=== PATIENT | female | born 1950 | race Caucasian/White ===

== ENCOUNTER 2019-05-22 13:21 | Outpatient (CLI) | payer BC ==
[2019-05-22] MEDS ORDERED: AMLO10TA8 PO (13:49)
[2019-05-22] MEDS ORDERED: ATOR20TA37 PO (13:49)
[2019-05-22] MEDS ORDERED: CIDE600C PO (13:49)
[2019-05-22] MEDS ORDERED: NAPR220C2 PO (14:01)
[2019-05-22] MEDS ORDERED: UBID1CAP43 PO (14:01)
[2019-05-22] MEDS ORDERED: ACET-458 PO (14:01)
== END 2019-05-22 23:59 | disposition home or self-care (01) ==
LOC: EDBD → STAR 13:21
PROVIDERS: ATTEND Surgery
DX: Z01.818 Encounter for other preprocedural examination (principal)
CPT/HCPCS: 93005

== ENCOUNTER 2019-05-26 10:40 | Inpatient (IN) | payer BC ==
[~2019-05-26] VITALS: Ht 167.6 cm; Wt 93.5 kg
[~2019-05-26 10:40] MED LIST: ACET-458 PO; AMLO10TA8 PO; ATOR20TA37 PO; CIDE600C PO; NAPR220C2 PO; UBID1CAP43 PO
[2019-05-26] MEDS ORDERED: FENTANYL PF 250 MCG/5ML ONE (10:50)
[2019-05-26] MEDS ORDERED: LIDOCAINE GEL 2%, 5ML ONE (10:51)
[2019-05-26] MEDS ORDERED: HYDROmorphone 2 MG/ML, 1ML IVPush PRN (11:00)
[2019-05-26] MEDS ORDERED: PROMETHAZINE 25 MG/ML, 1ML IV PRN (11:00)
[2019-05-26] MEDS ORDERED: MEPERIDINE/PF 25MG/ML,1ML IVPush PRN (11:00)
[2019-05-26] MEDS ORDERED: LABETALOL 5MG/ML, 20ML IV PRN (11:00)
[2019-05-26] MEDS ORDERED: hydrALAzine 20 MG/ML, 1ML IV PRN (11:00)
[2019-05-26] MEDS ORDERED: HALOPERIDOL 5 MG/ML IV PRN (11:00)
[2019-05-26] MEDS ORDERED: EPINEPHRINE 1 MG/ML, 1ML ONE (11:19)
[2019-05-26] MEDS ORDERED: BUPIVACAINE/PF 0.5% ONE (11:19)
[2019-05-26] MEDS ORDERED: LACTATED RINGERS 1,000 ML IV SCH (11:27)
[2019-05-26] MEDS ORDERED: ACETAMINOPHEN 500 MG TABLET PO ONE (11:30)
[2019-05-26] MEDS ORDERED: LIDOCAINE-MPF 1%, 2ML INFIL ONE (11:30)
[2019-05-26] MEDS ORDERED: GABAPENTIN 300 MG CAPSULE PO ONE (11:30)
[2019-05-26] MEDS ORDERED: MIDAZOLAM 1 MG/ML, 2ML ONE (11:36)
[2019-05-26] MEDS ORDERED: LIDOCAINE-MPF 2% ,5ML ONE (11:42)
[2019-05-26] MEDS ORDERED: HEPARIN 1,000 UNITS/ML, 10ML ONE (11:42)
[2019-05-26] MEDS ORDERED: CALCIUM CHLORIDE 10%, 10ML SYR ONE (11:43)
[2019-05-26] MEDS ORDERED: GLYCOPYRROLATE 0.2MG/1ML, 5ML ONE (11:46)
[2019-05-26] MEDS ORDERED: ROCURONIUM 10MG/ML,5ML ONE (11:46)
[2019-05-26] MEDS ORDERED: NEOSTIGMINE 1 MG/ML, 10ML ONE (11:46)
[2019-05-26] MEDS ORDERED: SUCCINYLCHOLINE 20 MG/ML, 10ML ONE (11:46)
[2019-05-26] MEDS ORDERED: ROPIvacaine/PF 0.2%, 20 ML ONE ×2 (15:35)
[2019-05-26] MEDS ORDERED: DEXAMETHASONE 4 MG/ML, 1ML ONE (15:42)
[2019-05-26] MEDS ORDERED: ONDANSETRON 2MG/ML, 2ML ONE (15:42)
[2019-05-26] MEDS ORDERED: CEFAZOLIN 1,000 MG ONE (15:42)
[2019-05-26] MEDS ORDERED: PROPOFOL 10 MG/ML, 20ML ONE (15:42)
[2019-05-26] MEDS ORDERED: OXYcodone 5 MG/5 ML ORAL.SOL UDC ONE (16:08)
[2019-05-26] MEDS ORDERED: FENTANYL PF 100 MCG/2ML ONE (16:08)
[2019-05-26] MEDS: OXYcodone 5 MG/5 ML ORAL.SOL UDC PO PRN ×2 (16:10→16:25)
[2019-05-26] MEDS: FENTANYL PF 100 MCG/2ML IV PRN ×2 (16:20→16:30)
[2019-05-26] MEDS ORDERED: MEPERIDINE/PF 25MG/ML,1ML ONE (16:47)
[2019-05-26 17:40] VITALS: BP 120/78
[2019-05-26] MEDS ORDERED: ACETAMINOPHEN 650 MG SUPP PR PRN (18:00)
[2019-05-26] MEDS ORDERED: DIPHENHYDRAMINE 25 MG CAPSULE PO PRN (18:00)
[2019-05-26] MEDS ORDERED: DIPHENHYDRAMINE 50 MG/ML, 1ML IV PRN (18:00)
[2019-05-26] MEDS ORDERED: LORazepam 2 MG/ML, 1ML IV PRN (18:30)
[2019-05-26] MEDS ORDERED: LORazepam 1MG TABLET PO PRN (18:30)
[2019-05-26] MEDS ORDERED: D5%-0.45% NACL 1,000 ML IV SCH (18:30)
[2019-05-26] MEDS: D5%-0.45% NACL 1,000 ML IV SCH (18:46)
[2019-05-26] MEDS: CEFAZOLIN PMX 2GM/50ML 50 ML IVPB SCH (19:58)
[2019-05-26 20:18] VITALS: BP 112/73
[2019-05-26] MEDS: OXYcodone/APAP 5/325MG TABLET PO PRN ×2 (20:27→21:02)
[2019-05-26 23:54] VITALS: BP 126/74
[2019-05-27] MEDS: morphine SULFATE 10 MG/ML, 1ML IV PRN ×5 (00:14→11:27)
[2019-05-27] MEDS: OXYcodone/APAP 5/325MG TABLET PO PRN ×5 (01:43→21:17)
[2019-05-27 03:58] VITALS: BP 129/70
[2019-05-27] MEDS: D5%-0.45% NACL 1,000 ML IV SCH ×2 (04:04→14:30)
[2019-05-27] MEDS: CEFAZOLIN PMX 2GM/50ML 50 ML IVPB SCH (04:11)
[2019-05-27 07:11] VITALS: BP 126/71
[2019-05-27 12:25] VITALS: BP 119/73
[2019-05-27] MEDS: ALBUTEROL SULFATE 2.5 MG/3 ML NPPB SCH ×2 (15:31→19:43)
[2019-05-27 20:00] VITALS: BP 136/85
[2019-05-28] MEDS: D5%-0.45% NACL 1,000 ML IV SCH ×3 (00:30→20:30)
[2019-05-28 02:00] VITALS: BP 143/70
[2019-05-28] MEDS: OXYcodone/APAP 5/325MG TABLET PO PRN ×2 (05:27→11:23)
[2019-05-28] MEDS: ALBUTEROL SULFATE 2.5 MG/3 ML NPPB SCH (05:56)
[2019-05-28 06:53] VITALS: BP 155/78
[2019-05-28 12:59] VITALS: BP 157/78
[2019-05-28] MEDS: ONDANSETRON 2MG/ML, 2ML IV PRN ×3 (15:49→22:20)
[2019-05-28] MEDS: ACETAMINOPHEN 325 MG TABLET PO PRN (15:49)
[2019-05-28 18:44] VITALS: BP 148/80
[2019-05-28] MEDS: ATORVASTATIN 20 MG TABLET PO SCH (20:30)
[2019-05-28] MEDS ORDERED: ALBUTEROL SULFATE 2.5 MG/3 ML ONE (22:55)
[2019-05-29 02:56] VITALS: BP 133/79
[2019-05-29] MEDS: D5%-0.45% NACL 1,000 ML IV SCH ×2 (06:29→16:30)
[2019-05-29 06:36] VITALS: BP 104/68
[2019-05-29] MEDS ORDERED: AMLODIPINE 10 MG TAB PO SCH (09:00)
[2019-05-29 09:42] VITALS: BP 124/71
[2019-05-29 14:04] VITALS: BP 101/70
[2019-05-29] MEDS ORDERED: ALBUTEROL/IPRATROPIUM 2.5MG/0.5MG, 3 ML NPPB PRN (14:30)
[2019-05-29] MEDS: ONDANSETRON 2MG/ML, 2ML IV PRN (15:30)
[2019-05-29 18:19] LABS: ANION GAP 3 mmol/L (5-15); CHLORIDE 104 mmol/L (98-107); CREATININE 0.63 mg/dL (0.55-1.02)
[2019-05-29] MEDS: ALBUTEROL SULFATE 2.5 MG/3 ML NPPB SCH (20:22)
[2019-05-29 20:38] LABS: BASOPHILS # (AUTO) 0.01 x10^3/uL (0-0.1); BASOPHILS % (AUTO) 0 % (0-1); EOSINOPHILS # (AUTO) 0.13 x10^3/uL (0-0.4); EOSINOPHILS % (AUTO) 2 % (1-7); LYMPHOCYTES # (AUTO) 0.75 x10^3/uL (1-3.4); LYMPHOCYTES % (AUTO) 9 % (22-44); MD NO; MEAN CORPUSCULAR HEMOGLOBIN 31.2 pg (27.0-34.8); MEAN CORPUSCULAR HGB CONC 33.8 g/dL (32.4-35.8); MEAN CORPUSCULAR VOLUME 92.4 fL (80-100); MEAN PLATELET VOLUME 7.4 fL (7.4-10.4); MONOCYTES # (AUTO) 0.54 x10^3/uL (0.2-0.8); MONOCYTES % (AUTO) 6 % (2-9); NEUTROPHILS # (AUTO) 7.14 x10^3/uL (1.8-6.8); NEUTROPHILS % (AUTO) 83 % (42-75); PLATELET COUNT 213 x10^3/uL (130-400); RED CELL DISTRIBUTION WIDTH 13.7 % (9.6-15.2)
[2019-05-29 20:51] VITALS: BP 135/78
[2019-05-29 20:56] LABS: TROPONIN I < 0.015 ng/mL (0.000-0.045)
[2019-05-29 21:00] LABS: INTERNATIONAL NORMALIZED RATIO 0.89 (0.93-1.1); PROTHROMBIN TIME 9.4 Seconds (9.6-11.5)
[2019-05-29] MEDS ORDERED: ATORVASTATIN 20 MG TABLET PO SCH (21:00)
[2019-05-29] MEDS: ATORVASTATIN 20 MG TABLET PO SCH (22:09)
[2019-05-29 22:11] LABS: FREE T4 (FREE THYROXINE) 1.01 ng/dL (0.76-1.46)
[2019-05-29] MEDS: ACETAMINOPHEN 325 MG TABLET PO PRN (22:42)
[2019-05-29] MEDS ORDERED: HEPARIN 25,000 UNITS/250ML PMX 250 ML IV PRN (23:00)
[2019-05-29] MEDS ORDERED: HEPARIN 5,000 UNITS/ML, 1ML IV ONE (23:00)
[2019-05-29] MEDS ORDERED: HEPARIN 5,000 UNITS/ML, 1ML IV PRN (23:00)
[2019-05-29] MEDS ORDERED: AMIODARONE 150 MG in DEXTROSE 5% 100 ML IV ONE (23:00)
[2019-05-29] MEDS ORDERED: FILTER 0.22 MICRON IV PRN (23:00)
[2019-05-29] MEDS: AMIODARONE 450 MG in DEXTROSE 5% 241 ML IV PRN (23:28)
[2019-05-30 01:02] VITALS: BP 119/75
[2019-05-30 06:39] VITALS: BP 139/80
[2019-05-30] MEDS: AMIODARONE 450 MG in DEXTROSE 5% 241 ML IV PRN (06:42)
[2019-05-30 08:51] VITALS: BP 121/76
[2019-05-30] MEDS: METOPROLOL TARTRATE 25 MG TAB PO SCH ×2 (08:57→21:33)
[2019-05-30] MEDS ORDERED: TEMPLATE NON-FORMULARY MED. (Ubidecarenone/Vit E Acetate (Co Q-10 100 Mg Softgel) 1 CAP) PO SCH (09:00)
[2019-05-30] MEDS ORDERED: METOPROLOL SUCCINATE 25 MG TAB.ER.24H PO SCH (09:00)
[2019-05-30] MEDS: ALBUTEROL SULFATE 2.5 MG/3 ML NPPB SCH ×2 (09:56→21:15)
[2019-05-30 14:40] VITALS: BP 114/69
[2019-05-30] MEDS: HEPARIN 5,000 UNITS/ML, 1ML SQ SCH (17:25)
[2019-05-30 20:08] VITALS: BP 148/83
[2019-05-30] MEDS: ATORVASTATIN 20 MG TABLET PO SCH (21:32)
[2019-05-30] MEDS: ACETAMINOPHEN 325 MG TABLET PO PRN (22:49)
[2019-05-31 01:19] VITALS: BP 151/81
[2019-05-31] MEDS: HEPARIN 5,000 UNITS/ML, 1ML SQ SCH ×3 (01:19→17:38)
[2019-05-31 05:24] LABS: ALANINE AMINOTRANSFERASE 35 U/L (12-78); ALBUMIN 2.7 g/dL (3.4-5.0); ANION GAP 4 mmol/L (5-15); CALCIUM 9.3 mg/dL (8.5-10.1); CHLORIDE 105 mmol/L (98-107); CREATININE 0.65 mg/dL (0.55-1.02)
[2019-05-31 05:25] LABS: BASOPHILS # (AUTO) 0.05 x10^3/uL (0-0.1); BASOPHILS % (AUTO) 1 % (0-1); EOSINOPHILS # (AUTO) 0.34 x10^3/uL (0-0.4); EOSINOPHILS % (AUTO) 5 % (1-7); LYMPHOCYTES # (AUTO) 1.48 x10^3/uL (1-3.4); LYMPHOCYTES % (AUTO) 23 % (22-44); MD NO; MEAN CORPUSCULAR HEMOGLOBIN 30.9 pg (27.0-34.8); MEAN CORPUSCULAR HGB CONC 33.6 g/dL (32.4-35.8); MEAN CORPUSCULAR VOLUME 92.1 fL (80-100); MEAN PLATELET VOLUME 7.7 fL (7.4-10.4); MONOCYTES # (AUTO) 0.54 x10^3/uL (0.2-0.8); MONOCYTES % (AUTO) 8 % (2-9); NEUTROPHILS # (AUTO) 4.12 x10^3/uL (1.8-6.8); NEUTROPHILS % (AUTO) 63 % (42-75); PLATELET COUNT 232 x10^3/uL (130-400); RED BLOOD COUNT 3.98 x10^6/uL (3.82-5.3); RED CELL DISTRIBUTION WIDTH 13.3 % (9.6-15.2)
[2019-05-31 05:26] LABS: ALKALINE PHOSPHATASE 77 U/L (45-117); BILIRUBIN,TOTAL 0.5 mg/dL (0.2-1.0); TOTAL PROTEIN 6.2 g/dL (6.4-8.2)
[2019-05-31 06:45] VITALS: BP 139/78
[2019-05-31] MEDS: ALBUTEROL SULFATE 2.5 MG/3 ML NPPB SCH (09:55)
[2019-05-31] MEDS: METOPROLOL TARTRATE 25 MG TAB PO SCH (10:03)
[2019-05-31 15:48] VITALS: BP 120/74
== END 2019-05-31 19:13 | disposition home or self-care (01) | DRG 570 ==
LOC: OUT 10:40 → 4NE 17:31 → OUT 21:57 → 5SO 05-29 20:38
PROVIDERS: ADMIT Plastic Surgery; ATTEND Internal Medicine
PROC: 0WU Anatomical Regions, General, Supplement (ICD-10-PCS; 2019-05-26)
PROC: 0JB80ZZ Excision of Abdomen Subcutaneous Tissue and Fascia, Open Approach (ICD-10-PCS; 2019-05-26 12:30)
PROC: B246ZZ4 Ultrasonography of Right and Left Heart, Transesophageal (ICD-10-PCS; principal; 2019-05-30 12:30)
DX: I89.0 Lymphedema, not elsewhere classified (principal); J96.01 Acute respiratory failure with hypoxia; Z94.84 Stem cells transplant status; I50.22 Chronic systolic (congestive) heart failure; I42.9 Cardiomyopathy, unspecified; J98.11 Atelectasis; M54.5 Low back pain; G89.29 Other chronic pain; I34.0 Nonrheumatic mitral (valve) insufficiency; E66.9 Obesity, unspecified; I11.0 Hypertensive heart disease with heart failure; E78.5 Hyperlipidemia, unspecified; R00.0 Tachycardia, unspecified; I48.0 Paroxysmal atrial fibrillation; Z82.0 Family history of epilepsy and other diseases of the nervous system; Z82.49 Family history of ischemic heart disease and other diseases of the circulatory system; Z85.828 Personal history of other malignant neoplasm of skin; Z87.891 Personal history of nicotine dependence; Z90.710 Acquired absence of both cervix and uterus; Z85.3 Personal history of malignant neoplasm of breast; Z92.21 Personal history of antineoplastic chemotherapy
CPT/HCPCS: 36415; J3490; J7613; 71045; 71275; 80048; 80053; 83735; 83880; 84439; 84443; 84484; 85025; 85520; 85610; 85730; 93005; 93308; 93312; 93321; 93325; 94640; C1729; G0378; J0171; J0690; J1100; J1644; J2250; J2405; J2704; J2710; J2795; J3010; J7060; J0282; J0330; J2175; J2270; J7120

== ENCOUNTER 2019-06-23 10:21 | Day surgery (SDC) | payer BC ==
[~2019-06-23] VITALS: Ht 165.1 cm; Wt 78.6 kg
[2019-06-23 11:08] VITALS: BP 111/73
[2019-06-23] MEDS ORDERED: METO50TA82 PO (11:28)
[2019-06-23] MEDS ORDERED: MIDAZOLAM 1 MG/ML, 5ML ONE (11:47)
[2019-06-23] MEDS ORDERED: FENTANYL PF 100 MCG/2ML ONE (11:47)
[2019-06-23] MEDS ORDERED: VERAPAMIL 2.5 MG/ML, 2ML ONE (11:48)
[2019-06-23] MEDS ORDERED: LIDOCAINE-MPF 1%, 5ML ONE (11:48)
[2019-06-23] MEDS ORDERED: BIVALIRUDIN 250 MG ONE (11:48)
[2019-06-23] MEDS ORDERED: HEPARIN 1,000 UNITS/ML, 10ML ONE (11:48)
== END 2019-06-23 14:52 | disposition home or self-care (01) ==
LOC: CACL 10:21
PROVIDERS: ATTEND Internal Medicine Cardiovascular Disease
DX: D15.1 Benign neoplasm of heart (principal); I25.10 Atherosclerotic heart disease of native coronary artery without angina pectoris; I25.83 Coronary atherosclerosis due to lipid rich plaque; I10 Essential (primary) hypertension; E78.5 Hyperlipidemia, unspecified; Z79.899 Other long term (current) drug therapy; Z85.3 Personal history of malignant neoplasm of breast; Z92.21 Personal history of antineoplastic chemotherapy; Z92.3 Personal history of irradiation; Z94.84 Stem cells transplant status
CPT/HCPCS: 93458; 99156; C1769; C1894; J1644; J2250; J3010; Q9967; J0583

== ENCOUNTER 2019-09-12 14:47 | Outpatient (CLI) | payer BC ==
[~2019-09-12 14:47] MED LIST changes: +METO50TA82 PO
== END 2019-09-12 23:59 | disposition home or self-care (01) ==
LOC: CFH 14:47
PROVIDERS: ATTEND Internal Medicine Cardiovascular Disease
DX: I08.1 Rheumatic disorders of both mitral and tricuspid valves (principal)
CPT/HCPCS: 93306

== ENCOUNTER 2019-10-01 13:56 | Outpatient (CLI) | payer BC ==
[2019-10-01] MEDS ORDERED: OMNIPAQUE 350 MG/ML, 100ML BOTTLE ONE (14:30)
== END 2019-10-01 23:59 | disposition home or self-care (01) ==
LOC: CFH 13:56
PROVIDERS: ATTEND Thoracic Surgery (Cardiothoracic Vascular Surgery)
DX: D15.1 Benign neoplasm of heart (principal)
CPT/HCPCS: 71275; 82565; Q9967

== ENCOUNTER 2019-10-06 08:00 | Outpatient (CLI) | payer BC ==
[2019-10-06] MEDS ORDERED: ACET-458 PO (13:22)
[2019-10-06] MEDS ORDERED: NAPR220C2 PO (13:22)
== END 2019-10-06 23:59 | disposition home or self-care (01) ==
LOC: CVU 08:00
PROVIDERS: ATTEND Thoracic Surgery (Cardiothoracic Vascular Surgery)
DX: I65.21 Occlusion and stenosis of right carotid artery (principal); I77.1 Stricture of artery; D15.1 Benign neoplasm of heart
CPT/HCPCS: 93880

== ENCOUNTER 2019-10-07 04:52 | Inpatient (IN) | payer BC, MEDICARE ==
[2019-10-06 13:48] LABS: BASOPHILS # (AUTO) 0.02 x10^3/uL (0-0.1); BASOPHILS % (AUTO) 0 % (0-1); EOSINOPHILS # (AUTO) 0.15 x10^3/uL (0-0.4); EOSINOPHILS % (AUTO) 2 % (1-7); LYMPHOCYTES # (AUTO) 1.62 x10^3/uL (1-3.4); LYMPHOCYTES % (AUTO) 24 % (22-44); MD NO; MEAN CORPUSCULAR HEMOGLOBIN 30.2 pg (27.0-34.8); MEAN CORPUSCULAR HGB CONC 33.3 g/dL (32.4-35.8); MEAN CORPUSCULAR VOLUME 90.6 fL (80-100); MONOCYTES # (AUTO) 0.44 x10^3/uL (0.2-0.8); MONOCYTES % (AUTO) 7 % (2-9); NEUTROPHILS # (AUTO) 4.51 x10^3/uL (1.8-6.8); NEUTROPHILS % (AUTO) 67 % (42-75); PLATELET COUNT 273 x10^3/uL (130-400); RED CELL DISTRIBUTION WIDTH 13.5 % (9.6-15.2)
[2019-10-06 13:57] LABS: MICROSCOPIC NOT IND
[2019-10-06 13:58] LABS: INTERNATIONAL NORMALIZED RATIO 0.92 (0.93-1.1); PROTHROMBIN TIME 9.7 Seconds (9.6-11.5)
[2019-10-06 14:00] LABS: ALANINE AMINOTRANSFERASE 27 U/L (12-78); ALBUMIN 4.1 g/dL (3.4-5.0); ANION GAP 3 mmol/L (5-15); CALCIUM 9.1 mg/dL (8.5-10.1); CHLORIDE 111 mmol/L (98-107); CREATININE 0.76 mg/dL (0.55-1.02)
[2019-10-06 14:03] LABS: ALKALINE PHOSPHATASE 83 U/L (45-117); BILIRUBIN,TOTAL 0.6 mg/dL (0.2-1.0)
[~2019-10-07] VITALS: Ht 165.1 cm; Wt 89.0 kg
[2019-10-07 05:12] VITALS: BP 144/90
[2019-10-07 05:13] VITALS: BP 166/98
[2019-10-07] MEDS ORDERED: CHLORHEXIDINE 15 ML UDC MM SCH (05:30)
[2019-10-07] MEDS ORDERED: INSULIN LISPRO 100 UNITS/ML, PEN SQ-INSULIN SCH (05:30)
[2019-10-07] MEDS ORDERED: DO NOT GIVE MC SCH (05:30)
[2019-10-07] MEDS ORDERED: AMINOCAPROIC ACID 250 MG/ML, 20ML ONE ×2 (06:43)
[2019-10-07] MEDS ORDERED: ROCURONIUM 10MG/ML,5ML ONE ×2 (06:43)
[2019-10-07] MEDS ORDERED: PROPOFOL 10 MG/ML, 20ML ONE (06:43)
[2019-10-07] MEDS ORDERED: MIDAZOLAM 10MG/2 ML ONE (06:43)
[2019-10-07] MEDS ORDERED: FENTANYL PF 250 MCG/5ML ONE ×4 (06:43)
[2019-10-07] MEDS ORDERED: POTASSIUM CHLORIDE 80 MEQ, SODIUM BICARBONATE 8.4% 10 MEQ, MAGNESIUM SULFATE 0.5 GM, LI... IV PRN (07:30)
[2019-10-07] MEDS ORDERED: MANNITOL PMX 20% 500 ML IVPB PRN (07:30)
[2019-10-07] MEDS ORDERED: ALBUMIN HUMAN 5% 500 ML IV PRN (07:30)
[2019-10-07] MEDS ORDERED: VANCOMYCIN 1,200 MG in SODIUM CHLORIDE 0.9% 250 ML IV PRN (07:30)
[2019-10-07] MEDS ORDERED: DEXMEDETOMIDINE 200 MCG in SODIUM CHLORIDE 0.9% 48 ML IV PRN ×2 (07:30→07:49)
[2019-10-07] MEDS ORDERED: EPINEPHRINE 5 MG in SODIUM CHLORIDE 0.9% 245 ML IV PRN ×2 (07:30→08:00)
[2019-10-07] MEDS ORDERED: REGULAR INSULIN 100 UNITS in SODIUM CHLORIDE 0.9% 99 ML IV PRN ×2 (07:30→07:49)
[2019-10-07] MEDS ORDERED: PHENYLEPHRINE 50 MG in SODIUM CHLORIDE 0.9% 245 ML IV PRN ×2 (07:30→07:49)
[2019-10-07] MEDS ORDERED: CEFUROXIME 1.5 GM in SODIUM CHLORIDE 0.9% 50 ML IVPB PRN (07:30)
[2019-10-07] MEDS ORDERED: VASOPRESSIN 20 UNIT in SODIUM CHLORIDE 0.9% 99 ML IV PRN (07:49)
[2019-10-07] MEDS ORDERED: NITROGLYCERIN/D5W PMX 250 ML IV PRN (07:49)
[2019-10-07] MEDS ORDERED: SODIUM CHLORIDE 0.9% 1,000 ML IV PRN (07:49)
[2019-10-07] MEDS ORDERED: DOBUTAMINE 250 MG in SODIUM CHLORIDE 0.9% 230 ML IV PRN (07:49)
[2019-10-07] MEDS ORDERED: MIDAZOLAM 1 MG/ML, 5ML IVPush PRN (08:00)
[2019-10-07] MEDS ORDERED: ACETAMINOPHEN 325 MG TABLET PO PRN (08:00)
[2019-10-07] MEDS ORDERED: INSULIN REGULAR 100 UNITS/ML, 3ML VIAL IVPush PRN (08:00)
[2019-10-07] MEDS ORDERED: GLUCAGON 1 MG IM PRN (08:00)
[2019-10-07] MEDS ORDERED: ACETAMINOPHEN 650 MG SUPP PR PRN (08:00)
[2019-10-07] MEDS ORDERED: BISACODYL 10 MG SUPP PR PRN (08:00)
[2019-10-07] MEDS ORDERED: BISACODYL 5 MG EC TABLET PO PRN (08:00)
[2019-10-07] MEDS ORDERED: PROCHLORPERAZINE 5 MG/ML, 2ML IVPush PRN (08:00)
[2019-10-07] MEDS ORDERED: ONDANSETRON 2MG/ML, 2ML IVPush PRN (08:00)
[2019-10-07] MEDS ORDERED: SODIUM BICARB 8.4%, 50ML SYRINGE IV PRN (08:00)
[2019-10-07] MEDS ORDERED: DEXTROSE 4 GM TAB.CHEW PO PRN (08:00)
[2019-10-07] MEDS ORDERED: HYDROmorphone 1 MG/ML, 1ML INJ IVPush PRN (08:00)
[2019-10-07] MEDS ORDERED: DEXTROSE 50%, 50ML SYRINGE IVPush PRN (08:00)
[2019-10-07] MEDS ORDERED: PROTAMINE SULFATE 10 MG/ML, 25ML ONE ×2 (08:53)
[2019-10-07] MEDS: MUPIROCIN OINT 2%, 22GM NAS SCH ×2 (09:00→20:13)
[2019-10-07] MEDS: SODIUM CHLORIDE FLUSH 10ML SYR IVF SCH ×2 (09:00→20:14)
[2019-10-07] MEDS ORDERED: MUPIROCIN OINT 2%, 22GM TP SCH (09:00)
[2019-10-07] MEDS: DOCUSATE 100 MG CAPSULE PO SCH ×2 (09:00→20:14)
[2019-10-07] MEDS ORDERED: SODIUM CHLORIDE FLUSH 10ML SYR IVF SCH (09:00)
[2019-10-07] MEDS ORDERED: CALCIUM CHLORIDE 10%, 10ML SYR ONE ×2 (10:37)
[2019-10-07] MEDS: INSULIN LISPRO 100 UNITS/ML, PEN SQ-INSULIN SCH ×3 (11:00→20:10)
[2019-10-07] MEDS: KSCALE TO 4.5 IV SCH ×3 (11:00→23:00)
[2019-10-07 11:16] LABS: GLUCOSE BY BLOOD GAS ANALYZER 185 mg/dL (70-110); HEMOGLOBIN BY BLOOD GAS ANALYZ 11.6 g/dL (14.0-18.0); POTASSIUM BY BLOOD GAS ANALYZR 3.2 mmol/L (3.6-5.5)
[2019-10-07 11:28] LABS: INTERNATIONAL NORMALIZED RATIO 1.08 (0.93-1.1); PROTHROMBIN TIME 11.5 Seconds (9.6-11.5)
[2019-10-07] MEDS: FENTANYL PF 100 MCG/2ML IVPush PRN ×4 (11:31→20:01)
[2019-10-07] MEDS: MAGNESIUM SULFATE 1 GM in SODIUM CHLORIDE 0.9% 100 ML IVPB SCH (11:53)
[2019-10-07] MEDS ORDERED: SODIUM BICARBONATE 1 MEQ/ML, 50ML VIAL ONE (12:25)
[2019-10-07] MEDS ORDERED: SODIUM BICARB 8.4%, 50ML SYRINGE ONE (12:25)
[2019-10-07] MEDS ORDERED: ALBUMIN HUMAN 25% 50 ML ONE (12:26)
[2019-10-07] MEDS ORDERED: LIDOCAINE 2%, 20ML ONE (12:26)
[2019-10-07] MEDS ORDERED: methylPREDNISolone SOD SUCC 125 MG/2 ML ONE (12:26)
[2019-10-07] MEDS ORDERED: HEPARIN 1,000 UNITS/ML, 30ML ONE (12:26)
[2019-10-07] MEDS ORDERED: POTASSIUM CHLORIDE 30 MEQ in SODIUM CHLORIDE 0.9% 100 ML IV ONE (13:00)
[2019-10-07] MEDS: HYDROcodone/APAP 10/325 MG TABLET PO PRN ×3 (14:40→23:46)
[2019-10-07] MEDS: OXYcodone IR 5MG TABLET PO PRN ×2 (15:46→16:50)
[2019-10-07] MEDS: CEFUROXIME 1.5 GM in SODIUM CHLORIDE 0.9% 50 ML IVPB SCH (18:42)
[2019-10-07] MEDS: VANCOMYCIN 1,200 MG in SODIUM CHLORIDE 0.9% 250 ML IVPB SCH (19:32)
[2019-10-08] MEDS: LACTATED RINGERS 1,000 ML IV PRN ×2 (01:00→02:00)
[2019-10-08 04:00] VITALS: BP 106/60
[2019-10-08 04:26] LABS: BASOPHILS # (AUTO) 0.01 x10^3/uL (0-0.1); BASOPHILS % (AUTO) 0 % (0-1); EOSINOPHILS # (AUTO) 0.05 x10^3/uL (0-0.4); EOSINOPHILS % (AUTO) 0 % (1-7); LYMPHOCYTES # (AUTO) 0.61 x10^3/uL (1-3.4); LYMPHOCYTES % (AUTO) 5 % (22-44); MD NO; MEAN CORPUSCULAR HEMOGLOBIN 30.9 pg (27.0-34.8); MEAN CORPUSCULAR HGB CONC 33.7 g/dL (32.4-35.8); MEAN CORPUSCULAR VOLUME 91.6 fL (80-100); MEAN PLATELET VOLUME 7.5 fL (7.4-10.4); MONOCYTES # (AUTO) 1.03 x10^3/uL (0.2-0.8); MONOCYTES % (AUTO) 8 % (2-9); NEUTROPHILS # (AUTO) 10.59 x10^3/uL (1.8-6.8); NEUTROPHILS % (AUTO) 86 % (42-75); PLATELET COUNT 146 x10^3/uL (130-400); RED BLOOD COUNT 3.24 x10^6/uL (3.82-5.3); RED CELL DISTRIBUTION WIDTH 13.8 % (9.6-15.2)
[2019-10-08 04:36] LABS: ALBUMIN 3.1 g/dL (3.4-5.0); ANION GAP 7 mmol/L (5-15); CALCIUM 8.5 mg/dL (8.5-10.1); CHLORIDE 116 mmol/L (98-107)
[2019-10-08] MEDS: KSCALE TO 4.5 IV SCH (05:00)
[2019-10-08 05:05] LABS: INTERNATIONAL NORMALIZED RATIO 0.94 (0.93-1.1)
[2019-10-08] MEDS: HYDROcodone/APAP 5/325 TABLET PO PRN (05:09)
[2019-10-08] MEDS: INSULIN LISPRO 100 UNITS/ML, PEN SQ-INSULIN SCH ×6 (05:22→20:00)
[2019-10-08] MEDS: CEFUROXIME 1.5 GM in SODIUM CHLORIDE 0.9% 50 ML IVPB SCH (06:39)
[2019-10-08] MEDS: VANCOMYCIN 1,200 MG in SODIUM CHLORIDE 0.9% 250 ML IVPB SCH (08:21)
[2019-10-08] MEDS: MAGNESIUM SULFATE 1 GM in SODIUM CHLORIDE 0.9% 100 ML IVPB SCH (08:21)
[2019-10-08] MEDS ORDERED: FUROSEMIDE 20 MG/2 ML IV ONE (09:00)
[2019-10-08] MEDS: ASPIRIN 81 MG TABLET EC PO SCH (09:09)
[2019-10-08] MEDS: DOCUSATE 100 MG CAPSULE PO SCH ×2 (09:09→21:02)
[2019-10-08] MEDS: CALCIUM CARBONATE 500 MG TAB.CHEW PO PRN ×3 (09:09→17:12)
[2019-10-08] MEDS: KETOROLAC 30 MG/1 ML IVPush SCH ×3 (09:48→21:09)
[2019-10-08] MEDS: SODIUM CHLORIDE FLUSH 10ML SYR IVF SCH ×2 (09:49→21:02)
[2019-10-08] MEDS: MUPIROCIN OINT 2%, 22GM NAS SCH ×2 (09:49→21:02)
[2019-10-08] MEDS: CHLORHEXIDINE 15 ML UDC MM SCH ×2 (09:49→21:02)
[2019-10-08 17:30] VITALS: BP 117/70
[2019-10-08 20:54] VITALS: BP 126/72
[2019-10-09] MEDS: CALCIUM CARBONATE 500 MG TAB.CHEW PO PRN ×3 (00:03→21:58)
[2019-10-09] MEDS: KETOROLAC 30 MG/1 ML IVPush SCH ×4 (03:46→21:19)
[2019-10-09 03:47] VITALS: BP 113/68
[2019-10-09 04:21] LABS: BASOPHILS % (AUTO) 0 % (0-1); EOSINOPHILS # (AUTO) 0.04 x10^3/uL (0-0.4); EOSINOPHILS % (AUTO) 0 % (1-7); LYMPHOCYTES # (AUTO) 0.94 x10^3/uL (1-3.4); LYMPHOCYTES % (AUTO) 9 % (22-44); MD NO; MEAN CORPUSCULAR HEMOGLOBIN 30.6 pg (27.0-34.8); MEAN CORPUSCULAR HGB CONC 33.5 g/dL (32.4-35.8); MEAN CORPUSCULAR VOLUME 91.1 fL (80-100); MEAN PLATELET VOLUME 7.6 fL (7.4-10.4); MONOCYTES # (AUTO) 0.84 x10^3/uL (0.2-0.8); MONOCYTES % (AUTO) 8 % (2-9); NEUTROPHILS # (AUTO) 8.58 x10^3/uL (1.8-6.8); NEUTROPHILS % (AUTO) 82 % (42-75); PLATELET COUNT 138 x10^3/uL (130-400); RED BLOOD COUNT 3.15 x10^6/uL (3.82-5.3); RED CELL DISTRIBUTION WIDTH 13.9 % (9.6-15.2)
[2019-10-09 04:26] LABS: INTERNATIONAL NORMALIZED RATIO 0.92 (0.93-1.1); PROTHROMBIN TIME 9.7 Seconds (9.6-11.5)
[2019-10-09 04:28] LABS: ANION GAP 3 mmol/L (5-15); CALCIUM 8.9 mg/dL (8.5-10.1); CHLORIDE 110 mmol/L (98-107); CREATININE 0.74 mg/dL (0.55-1.02)
[2019-10-09 07:35] VITALS: BP 116/68
[2019-10-09] MEDS: INSULIN LISPRO 100 UNITS/ML, PEN SQ-INSULIN SCH ×4 (08:12→21:29)
[2019-10-09] MEDS: SODIUM CHLORIDE FLUSH 10ML SYR IVF SCH ×2 (08:57→21:00)
[2019-10-09] MEDS: ASPIRIN 81 MG TABLET EC PO SCH (08:57)
[2019-10-09] MEDS: CHLORHEXIDINE 15 ML UDC MM SCH ×2 (08:57→21:19)
[2019-10-09] MEDS: MUPIROCIN OINT 2%, 22GM NAS SCH ×2 (08:57→21:18)
[2019-10-09] MEDS: DOCUSATE 100 MG CAPSULE PO SCH ×2 (08:57→21:19)
[2019-10-09] MEDS: MAGNESIUM SULFATE 1 GM in SODIUM CHLORIDE 0.9% 100 ML IVPB SCH (08:57)
[2019-10-09] MEDS: FUROSEMIDE 40 MG/4 ML IV SCH ×2 (11:38→16:27)
[2019-10-09] MEDS: POTASSIUM CHLORIDE 20 MEQ TAB.ER.PRT PO SCH ×2 (11:39→16:27)
[2019-10-09 13:55] VITALS: BP 138/74
[2019-10-09] MEDS: HYDROcodone/APAP 5/325 TABLET PO PRN (15:36)
[2019-10-09] MEDS ORDERED: POTASSIUM CHLORIDE 20 MEQ TAB.ER.PRT PO SCH (17:00)
[2019-10-09] MEDS ORDERED: FUROSEMIDE 40 MG/4 ML IV SCH (17:00)
[2019-10-09 19:09] VITALS: BP 120/71
[2019-10-09] MEDS: HYDROcodone/APAP 10/325 MG TABLET PO PRN (21:19)
[2019-10-10] MEDS: CALCIUM CARBONATE 500 MG TAB.CHEW PO PRN (00:11)
[2019-10-10 00:34] VITALS: BP 135/83
[2019-10-10] MEDS: KETOROLAC 30 MG/1 ML IVPush SCH ×4 (03:07→20:19)
[2019-10-10 03:39] LABS: BASOPHILS # (AUTO) 0.03 x10^3/uL (0-0.1); BASOPHILS % (AUTO) 0 % (0-1); EOSINOPHILS # (AUTO) 0.23 x10^3/uL (0-0.4); EOSINOPHILS % (AUTO) 3 % (1-7); LYMPHOCYTES # (AUTO) 1.48 x10^3/uL (1-3.4); LYMPHOCYTES % (AUTO) 17 % (22-44); MD NO; MEAN CORPUSCULAR HEMOGLOBIN 30.9 pg (27.0-34.8); MEAN CORPUSCULAR HGB CONC 33.7 g/dL (32.4-35.8); MEAN CORPUSCULAR VOLUME 91.7 fL (80-100); MEAN PLATELET VOLUME 7.6 fL (7.4-10.4); MONOCYTES # (AUTO) 0.71 x10^3/uL (0.2-0.8); MONOCYTES % (AUTO) 8 % (2-9); NEUTROPHILS # (AUTO) 6.02 x10^3/uL (1.8-6.8); NEUTROPHILS % (AUTO) 71 % (42-75); PLATELET COUNT 151 x10^3/uL (130-400); RED BLOOD COUNT 3.31 x10^6/uL (3.82-5.3); RED CELL DISTRIBUTION WIDTH 13.8 % (9.6-15.2)
[2019-10-10 03:50] LABS: ANION GAP 1 mmol/L (5-15); CHLORIDE 106 mmol/L (98-107); CREATININE 0.52 mg/dL (0.55-1.02)
[2019-10-10 07:08] VITALS: BP 120/79
[2019-10-10] MEDS ORDERED: DIPHENHYDRAMINE 50 MG CAPSULE PO PRN (08:00)
[2019-10-10] MEDS: DOCUSATE 100 MG CAPSULE PO SCH ×2 (08:03→20:19)
[2019-10-10] MEDS: ASPIRIN 81 MG TABLET EC PO SCH (08:03)
[2019-10-10] MEDS: INSULIN LISPRO 100 UNITS/ML, PEN SQ-INSULIN SCH ×2 (08:03→11:19)
[2019-10-10] MEDS: POTASSIUM CHLORIDE 20 MEQ TAB.ER.PRT PO SCH ×2 (08:04→16:48)
[2019-10-10] MEDS: SODIUM CHLORIDE FLUSH 10ML SYR IVF SCH ×2 (08:04→20:20)
[2019-10-10] MEDS: FUROSEMIDE 40 MG/4 ML IV SCH ×2 (08:04→16:47)
[2019-10-10] MEDS: MUPIROCIN OINT 2%, 22GM NAS SCH ×2 (08:05→20:19)
[2019-10-10] MEDS: HYDROcodone/APAP 10/325 MG TABLET PO PRN (13:57)
[2019-10-10 14:05] VITALS: BP 110/77
[2019-10-10 16:48] VITALS: BP 130/83
[2019-10-10] MEDS ORDERED: RIVAROXABAN 20 MG TABLET PO SCH (17:00)
[2019-10-10 18:38] VITALS: BP 111/70
[2019-10-11 00:09] VITALS: BP 153/89
[2019-10-11] MEDS: KETOROLAC 30 MG/1 ML IVPush SCH ×3 (03:07→15:00)
[2019-10-11 03:22] LABS: ANION GAP 0 mmol/L (5-15); CALCIUM 9.3 mg/dL (8.5-10.1); CHLORIDE 106 mmol/L (98-107); CREATININE 0.56 mg/dL (0.55-1.02)
[2019-10-11 03:27] LABS: BASOPHILS # (AUTO) 0.04 x10^3/uL (0-0.1); BASOPHILS % (AUTO) 1 % (0-1); EOSINOPHILS # (AUTO) 0.27 x10^3/uL (0-0.4); EOSINOPHILS % (AUTO) 4 % (1-7); LYMPHOCYTES # (AUTO) 1.32 x10^3/uL (1-3.4); LYMPHOCYTES % (AUTO) 21 % (22-44); MD NO; MEAN CORPUSCULAR HEMOGLOBIN 30.5 pg (27.0-34.8); MEAN CORPUSCULAR HGB CONC 33.1 g/dL (32.4-35.8); MEAN PLATELET VOLUME 7.7 fL (7.4-10.4); MONOCYTES # (AUTO) 0.54 x10^3/uL (0.2-0.8); MONOCYTES % (AUTO) 8 % (2-9); NEUTROPHILS # (AUTO) 4.28 x10^3/uL (1.8-6.8); NEUTROPHILS % (AUTO) 66 % (42-75); PLATELET COUNT 175 x10^3/uL (130-400); RED BLOOD COUNT 3.38 x10^6/uL (3.82-5.3); RED CELL DISTRIBUTION WIDTH 12.9 % (9.6-15.2)
[2019-10-11 07:00] VITALS: BP 124/72
[2019-10-11] MEDS ORDERED: RIVAROXABAN 20 MG TABLET PO SCH (08:00)
[2019-10-11] MEDS ORDERED: POTA20TA6 PO (08:47)
[2019-10-11] MEDS ORDERED: RIVA20TA PO (08:47)
[2019-10-11] MEDS ORDERED: FURO-92 PO (08:47)
[2019-10-11] MEDS ORDERED: HYDR-3245 PO (08:47)
[2019-10-11] MEDS ORDERED: ASPI81TA45 PO (08:47)
[2019-10-11] MEDS: SODIUM CHLORIDE FLUSH 10ML SYR IVF SCH (09:00)
[2019-10-11] MEDS: POTASSIUM CHLORIDE 20 MEQ TAB.ER.PRT PO SCH (09:12)
[2019-10-11] MEDS: ASPIRIN 81 MG TABLET EC PO SCH (09:12)
[2019-10-11] MEDS: MUPIROCIN OINT 2%, 22GM NAS SCH (09:12)
[2019-10-11] MEDS: FUROSEMIDE 40 MG/4 ML IV SCH (09:12)
[2019-10-11] MEDS: DOCUSATE 100 MG CAPSULE PO SCH (09:12)
[2019-10-11 15:17] VITALS: BP 134/81
[2019-10-11] MEDS: HYDROcodone/APAP 5/325 TABLET PO PRN (15:50)
== END 2019-10-11 16:34 | disposition home or self-care (01) | DRG 229 ==
LOC: 5SO 04:52 → CSU 07:27 → 5SO 10-08 17:22
PROVIDERS: ADMIT Thoracic Surgery (Cardiothoracic Vascular Surgery); ATTEND Hospitalist
PROC: 5A1221Z Performance of Cardiac Output, Continuous (ICD-10-PCS; 2019-10-07)
PROC: B246ZZ4 Ultrasonography of Right and Left Heart, Transesophageal (ICD-10-PCS; 2019-10-07)
PROC: 02B70ZZ Excision of Left Atrium, Open Approach (ICD-10-PCS; principal; 2019-10-07 07:30)
DX: D15.1 Benign neoplasm of heart (principal); E66.9 Obesity, unspecified; C50.819 Malignant neoplasm of overlapping sites of unspecified female breast; E78.5 Hyperlipidemia, unspecified; I10 Essential (primary) hypertension; I89.0 Lymphedema, not elsewhere classified; I48.0 Paroxysmal atrial fibrillation; Z92.3 Personal history of irradiation; Z68.32 Body mass index [BMI] 32.0-32.9, adult; Z79.01 Long term (current) use of anticoagulants; Z88.5 Allergy status to narcotic agent; Z20.828 Contact with and (suspected) exposure to other viral communicable diseases; I34.0 Nonrheumatic mitral (valve) insufficiency
CPT/HCPCS: 36415; 36600; J3490; S0017; 71045; 71046; 80048; 80053; 81003; 82040; 82330; 82800; 82803; 82810; 82947; 82962; 83036; 83735; 84132; 84295; 85014; 85018; 85025; 85049; 85347; 85610; 85730; 86850; 86900; 86923; 87081; 87635; 88305; 93005; 93312; 93321; 93325; 94002; 94150; G0378; J0171; J0697; J1170; J1644; J1815; J1885; J1940; J2250; J2405; J2704; J2720; J3010; J3370; J3475; J3480; P9045; P9047; C1760; C1768; J0780; J2370; J2930; J7050; J7120